=== PATIENT | female | born 1975 | race American Indian/Alaskan Native ===

== ENCOUNTER 2019-05-26 08:00 | Emergency (ER) | payer SELFPAY ==
[2019-05-26] MEDS ORDERED: ASPIRIN PO ONE (08:07)
[2019-05-26 09:07] LABS: Basophils % (Auto) 0.7 % (0.0-1.8); Eosinophils # (Auto) 0.1 K/mm3 (0.0-0.4); Eosinophils % (Auto) 1.3 % (0.0-4.3); Lymphocytes # (Auto) 1.3 K/mm3 (1.2-5.4); Lymphocytes % (Auto) 18.6 % (13.4-35.0); Mean Corpuscular HGB Conc 29 % (30-34); Mean Corpuscular Volume 71 fl (79-97); Monocytes # (Auto) 0.4 K/mm3 (0.0-0.8); Monocytes % (Auto) 5.6 % (0.0-7.3); Platelet Count 487 K/mm3 (140-440); Red Blood Count 4.06 M/mm3 (3.65-5.03); Red Cell Distribution Width 19.2 % (13.2-15.2)
[2019-05-26 09:15] LABS: Hematocrit 28.7 % (30.3-42.9); Hemoglobin 8.3 gm/dl (10.1-14.3)
[2019-05-26 09:27] LABS: BUN/Creatinine Ratio 13; Blood Urea Nitrogen 10 mg/dL (7-17); Calcium 8.6 mg/dL (8.4-10.2); Hemolysis Index 9
--- NOTE | 2019-05-26 09:29 | XRay Report ---
CHEST 2 VIEWS INDICATION: Severe chest pain that radiates to neck. COMPARISON: None FINDINGS: Support devices: None. Heart: Within normal limits. Lungs/pleura: No acute air space or interstitial disease. No pneumothorax. Additional findings: None. IMPRESSION: No acute findings. Signer Name: Casa Moraes Jr, MD Signed: 05/26/2019 9:24 AM Workstation Name: [id number]
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
[2019-05-26] MEDS ORDERED: ASPIRIN ONE (11:56)
[2019-05-26] MEDS ORDERED: TYLENOL PO ONE (16:14)
--- NOTE | 2019-05-26 16:19 | Cat Scan Report ---
CT HEAD WITHOUT CONTRAST INDICATION : Dizziness, headache. TECHNIQUE: Axial imaging performed from the skull apex through the skull base without the use of con trast. Sagittal and coronal reformatted images. All CT scans at this location are performed using C T dose reduction for ALARA by means of automated exposure control. COMPARISON: None FINDINGS: Parenchyma: No acute intracranial hemorrhage or parenchymal abnormality. Ventricles: Ventricles are normal in size and appear symmetric. Bones: No acute osseous abnormality. Sinuses: Sinuses and mastoid air cells are clear. Soft tissues: Soft tissues including the orbits appear normal. IMPRESSION: No acute abnormality. Signer Name: Casa Moraes Jr, MD Signed: 05/26/2019 4:15 PM Workstation Name: [id number]
--- NOTE | 2019-05-26 16:21 | Cat Scan Report ---
CTA CHEST WITH CONTRAST INDICATION : Chest pain, shortness of breath, elevated d-dimer. TECHNIQUE: Axial imaging performed through the chest, with contrast bolus timing set to maximize opa cification of the pulmonary arteries. Sagittal and coronal reformatted images. 3-plane MIP reformatte d images were obtained. All CT scans at this location are performed using CT dose reduction for ALAR A by means of automated exposure control. 100 mL of intravenous contrast administered. COMPARISON: None FINDINGS: Bolus: Contrast bolus timing is adequate. PTE: No filling defect is present to suggest PTE. Mediastinum: Heart and great vessels appear normal. No pathologic mediastinal adenopathy. Lungs: Lungs are clear. Bones: Degenerative changes in the spine with nothing acute. Upper abdomen: Limited imaging of the upper abdomen shows nothing acute. IMPRESSION: Negative for PTE. Clear lungs. Signer Name: Casa Moraes Jr, MD Signed: 05/26/2019 4:17 PM Workstation Name: [id number]
[2019-05-26 18:19] VITALS: BP 151/95
== END 2019-05-26 17:48 | disposition home or self-care (01) ==
LOC: ED 08:00
DX: I10 Essential (primary) hypertension (principal); D64.9 Anemia, unspecified; Z91.14 Patient's other noncompliance with medication regimen; Z98.890 Other specified postprocedural states; Z87.891 Personal history of nicotine dependence; Z79.899 Other long term (current) drug therapy; Z88.8 Allergy status to other drugs, medicaments and biological substances
CPT/HCPCS: 36415; 70450; 71046; 71275; 80048; 84484; 84703; 85025; 85379; 93005; 93010; 99285; Q9967